=== PATIENT | female | born 1930 | race Caucasian/White ===

== ENCOUNTER 2017-04-04 09:10 | Inpatient (IN) | payer MEDICARE ==
[~2017-04-04] VITALS: Ht 166.4 cm; Wt 61.9 kg
[~2017-04-04 09:10] MED LIST: ARICEPT10 MG PO; ATIVAN0.5 MG PO; BAYER CHEWABLE81 MG PO; BUMETANIDE0.5 MG PO; GLUCOSAMINE & C1 CAP PO; LISINOPRIL10 MG PO; MULTIPLE VITAMI1 TA1 PO; NEXIUM40 MG PO; NORVASC5 MG PO; PREMARIN0.625 MG PO; REQUIP1 MG PO; VITAMIN D250000 UNIT PO; VITAMIN D5000 UNIT PO
[2017-04-04 09:49] LABS: BASOPHILS 0.2 % (0-2); EOSINOPHILS 0.5 % (0-7); HEMATOCRIT 38.1 % (36.0-48.0); HEMOGLOBIN 12.6 g/dL (12-16); IMMATURE GRANULOCYTES 0.2 % (0-5); LYMPHOCYTES 39.9 % (15-50); MCH 26.7 pg (26.0-34.0); MCHC 33.1 g/dL (31.0-37.0); MCV 80.7 fL (80.0-100.0); MEAN PLATELET VOLUME 11.2 fL (7.4-10.4); MONOCYTES 5.2 % (2-11); PLATELET COUNT 175 10x3/uL (130-400); RBC 4.72 10x6/uL (4.00-5.40); RDW 13.1 % (11.5-14.5); WBC 5.6 10x3/uL (4.8-10.8)
[2017-04-04 10:09] LABS: ALBUMIN 3.6 g/dL (3.4-5.0); ALKALINE PHOSPHATASE 74 U/L (46-116); ALT (SGPT) 29 U/L (10-68); BILIRUBIN - TOTAL 0.54 mg/dL (0.2-1.3); CALC OSMOLALITY 282 mosm/kg (275-300); CALCIUM 8.6 mg/dL (8.5-10.1); CARBON DIOXIDE 28.6 mmol/L (21.0-32.0); CHLORIDE - SERUM 101 mmol/L (98-107); CREATININE - SERUM 1.4 mg/dL (0.6-1.3); GLUCOSE 113 mg/dL (74-106); POTASSIUM - SERUM 3.2 mmol/L (3.5-5.1); SODIUM 139 mmol/L (136-145); UREA NITROGEN 23 mg/dL (7-18); eGFR NON AFRICAN AMERICAN 38 mL/min (90-120)
[2017-04-04 10:28] LABS: CKMB 1.7 U/L (0.0-3.6); CREATINE KINASE 61 UL (21-215)
[2017-04-04 10:29] LABS: TROPONIN-I < 0.017 ng/mL (0.000-0.060)
[2017-04-04 10:36] LABS: APPEARANCE CLOUDY (CLEAR); BILIRUBIN NEGATIVE (NEGATIVE); COLOR YELLOW (YELLOW); GLUCOSE NEGATIVE (NEGATIVE); KETONE NEGATIVE (NEGATIVE); NITRITE NEGATIVE (NEGATIVE); PROTEIN NEGATIVE (NEGATIVE); UROBILINOGEN NORMAL (NORMAL)
[2017-04-04 10:37] LABS: BACTERIA MANY /hpf (NONE SEEN); EPITHELIAL CELLS 0-5 /hpf (0-5); MUCUS <1+ /lpf (NONE SEEN); RED CELLS - URINE OCC /hpf (0-5)
[2017-04-04 10:38] LABS: HYALINE CAST 0-5 /lpf (NONE SEEN)
[2017-04-04] MEDS ORDERED: DIOVAN80 MG PO (21:58)
[2017-04-05 01:51] VITALS: Ht 166.4 cm; Wt 61.9 kg
[2017-04-05 04:27] VITALS: BP 132/58
[2017-04-05 06:13] LABS: BASOPHILS 0.1 % (0-2); EOSINOPHILS 0.6 % (0-7); HEMATOCRIT 41.3 % (36.0-48.0); HEMOGLOBIN 13.5 g/dL (12-16); IMMATURE GRANULOCYTES 0.1 % (0-5); LYMPHOCYTES 43.7 % (15-50); MCH 26.6 pg (26.0-34.0); MCHC 32.7 g/dL (31.0-37.0); MCV 81.5 fL (80.0-100.0); MEAN PLATELET VOLUME 11.6 fL (7.4-10.4); MONOCYTES 8.1 % (2-11); NEUTROPHILS 47.4 % (40-80); PLATELET COUNT 196 10x3/uL (130-400); RBC 5.07 10x6/uL (4.00-5.40); RDW 13.4 % (11.5-14.5)
[2017-04-05 06:24] LABS: WBC 7.2 10x3/uL (4.8-10.8)
[2017-04-05 06:34] LABS: ALBUMIN 3.7 g/dL (3.4-5.0); BILIRUBIN - TOTAL 0.4 mg/dL (0.2-1.3); CALCIUM 8.8 mg/dL (8.5-10.1); CARBON DIOXIDE 31.6 mmol/L (21.0-32.0); CREATININE - SERUM 1.3 mg/dL (0.6-1.3); POTASSIUM - SERUM 3.6 mmol/L (3.5-5.1); PROTEIN - SERUM 7.1 g/dL (6.4-8.2)
[2017-04-05 08:36] VITALS: BP 161/59
[2017-04-05 12:52] VITALS: BP 139/59
[2017-04-05] MEDS ORDERED: MACRODANTIN100 MG PO (15:04)
== END 2017-04-05 16:50 | disposition short-term general hospital (02) | DRG 689 ==
LOC: D.ER 09:10 → D.M2 20:26
PROVIDERS: Family Medicine
DX: N39.0 Urinary tract infection, site not specified (principal); G92 Toxic encephalopathy; F02.81 Dementia in other diseases classified elsewhere, unspecified severity, with behavioral disturbance; N17.9 Acute kidney failure, unspecified; B96.20 Unspecified Escherichia coli [E. coli] as the cause of diseases classified elsewhere; I10 Essential (primary) hypertension; J44.9 Chronic obstructive pulmonary disease, unspecified; I25.10 Atherosclerotic heart disease of native coronary artery without angina pectoris; K21.9 Gastro-esophageal reflux disease without esophagitis; E87.6 Hypokalemia; G30.9 Alzheimer's disease, unspecified; G25.81 Restless legs syndrome; E55.9 Vitamin D deficiency, unspecified

== ENCOUNTER 2017-04-05 16:34 | Inpatient (IN) | payer MEDICARE ==
--- NOTE | ~2017-04-05 | PN ---
PATIENT:MARIYA MAGANA MEDICAL RECORD: [id number] LOCATION:[facility] [address] ADMISSION DATE: 04/05/17 PROGRESS NOTE DATE OF SERVICE: 04/07/2017 SUBJECTIVE: The patient's case was discussed with staff. She has no new complaint. OBJECTIVE: The patient is severely impaired cognitively and has an advanced dementia. She was not aggressive today. ASSESSMENT: No change in diagnoses. PLAN: Brief supportive and educational interventions were made. Penitentiary prognosis is guarded. TRANSINT:[id number] Voice Confirmation ID: [id number] DOCUMENT ID: [id number] AMIRA WARE MD at 0912 CC: [id number] DICTATION DATE: 04/07/17 1216 ENGRAVER PICTURE: 04/07/17 1230 ADM IN [place] [id number] [place] [address]
--- NOTE | ~2017-04-05 | DS ---
PATIENT:MARIYA MAGANA :[birth year] MEDICAL RECORD: [id number] DISCHARGE SUMMARY ADMISSION DATE: 04/05/17 DISCHARGE DATE: 04/21/17 IDENTIFYING DATA: The patient is 86 years old and she is referred to us on a voluntary basis because of psychotic symptoms. She believed her son was stealing from her. She has a long established diagnosis of dementia and initially presented to the Emergency Room agitated, aggressive, and disruptive. She made very bizarre and grandiose statements along the lines of the [facility] making a museum to her honor and her family and so she needed to leave to be there for the opening of the museum. She believes she has extensive property, which certainly may well be true, but she also believed her son was trying to steal it from her for reasons that are unknown and in manner or means that are similarly unknown. HOSPITAL COURSE: The patient was admitted to the hospital and fully evaluated from both a medical, psychological, and social standpoint. She was treated with both memory enhancing and mood stabilizing medications and showed significant improvement. She subsequently was transitioned out of the hospital. DISCHARGE DIAGNOSES: AXIS I: Senile dementia of the Alzheimer's type with behavioral disturbances. AXIS II: None. AXIS III: Hypertension and chronic obstructive pulmonary disease. AXIS IV: Moderate stressors. AXIS V: Global assessment of functioning is 35. PLAN: At the time of discharge, the patient was in good behavioral control with no thoughts of harming herself or others. She was tolerating her medications well. Her long-term prognosis is guarded. Followup is to be with her primary care physician. TRANSINT:[id number] Voice Confirmation ID: [id number] DOCUMENT ID: [id number] AMIRA WARE MD at 1459 CC: [id number] DICTATION DATE: 04/27/17 1735 FOLDING RULES PRINTING MACHINE OPERATOR: 04/28/17 0832 DIS IN 04/21/17 [id number] [place] [address]
--- NOTE | ~2017-04-05 | PN ---
PATIENT:MARIYA MAGANA MEDICAL RECORD: [id number] LOCATION:[facility] [address] ADMISSION DATE: 04/05/17 PROGRESS NOTE DATE OF SERVICE: 04/19/2017 SUBJECTIVE: The patient's case was discussed with staff. She has no new complaint. OBJECTIVE: The patient denies intent to harm herself or others. She tolerates her medicines well. Eye contact is poor. ASSESSMENT: No change in diagnoses. PLAN: Current medicines and therapies have been reviewed and will be maintained. Long-term prognosis is guarded. TRANSINT:[id number] Voice Confirmation ID: [id number] DOCUMENT ID: [id number] AMIRA WARE MD at 1426 CC: [id number] DICTATION DATE: 04/19/17 1428 BORE MINER OPERATOR: 04/19/17 1455 ADM IN [id number] [place] [address]
--- NOTE | ~2017-04-05 | PN ---
PATIENT:MARIYA MAGANA MEDICAL RECORD: [id number] LOCATION:[facility] [address]112 ADMISSION DATE: 04/05/17 PROGRESS NOTE DATE OF SERVICE: 04/15/2017 SUBJECTIVE: No new complaint. OBJECTIVE: The patient continues to exhibit paranoid delusional ideation. Behaviorally, she has not presented new problems. She is taking medication as ordered. On exam, mood is slightly anxious. Affect is reserved. Speech is tangential. Content of thought is positive for delusional ideation. Sensorium unchanged. ASSESSMENT: No change in diagnoses. PLAN: 1. Continue current treatment plan. 2. Continue supportive therapy. TRANSINT:[id number] Voice Confirmation ID: [id number] DOCUMENT ID: [id number] HERI RODRIGUEZ III, MD at 1733 CC: [id number] DICTATION DATE: 04/15/17 1429 EDUCATIONAL ASSISTANT TEACHER: 04/15/17 1513 ADM IN [facility] [address] [place] [address]
--- NOTE | ~2017-04-05 | PN ---
PATIENT:MARIYA MAGANA MEDICAL RECORD: [id number] LOCATION:[facility] [address] ADMISSION DATE: 04/05/17 PROGRESS NOTE DATE OF SERVICE: 04/14/2017 SUBJECTIVE: The patient's case was discussed with staff. She has no new complaint. OBJECTIVE: The patient denies intent to harm herself or others. She is tolerating her medicines well. Eye contact is fair. She has been a little irritable, but nothing that would rise to the level of unmanageable. I am going to maintain her current medicines and would anticipate that she could reasonably be transitioned out of the hospital after the weekend if this level of improvement is maintained. TRANSINT:[id number] Voice Confirmation ID: [id number] DOCUMENT ID: [id number] AMIRA WARE MD at 1344 CC: [id number] DICTATION DATE: 04/14/17 1227 SALON MANAGER: 04/14/17 1234 ADM IN [id number] [place] [address]
--- NOTE | ~2017-04-05 | PN ---
PATIENT:MARIYA MAGANA MEDICAL RECORD: [id number] LOCATION:[facility] [address] ADMISSION DATE: 04/05/17 PROGRESS NOTE DATE OF SERVICE: 04/12/2017 SUBJECTIVE: The patient's case was discussed with staff. She has no new complaint. OBJECTIVE: The patient is somewhat withdrawn, but interacts some. She is eating and sleeping well. She is also taking her medications. ASSESSMENT: No change in diagnoses. PLAN: The patient is severely impaired cognitively. She will be monitored for clinical changes associated with her current medication regimen, which I have reviewed and will maintain for today. TRANSINT:[id number] Voice Confirmation ID: [id number] DOCUMENT ID: [id number] AMIRA WARE MD at 2008 CC: [id number] DICTATION DATE: 04/12/17 1522 THEORETICAL PHYSICIST: 04/12/17 1527 ADM IN [place] [id number] [place] [id number]
--- NOTE | ~2017-04-05 | PN ---
PATIENT:MARIYA MAGANA MEDICAL RECORD: [id number] LOCATION:[facility] [address] ADMISSION DATE: 04/05/17 PROGRESS NOTE DATE OF SERVICE: 04/21/2017 SUBJECTIVE: The patient's case was discussed with staff. She has no new complaint. OBJECTIVE: The patient is in good behavioral control with limited insight about her condition. She tolerates her medicines well. ASSESSMENT: No change in diagnoses. PLAN: The patient will be discharged from the hospital today. Followup will be with her primary care alf physician. She does not represent an acute danger to the patients at the alf. TRANSINT:[id number] Voice Confirmation ID: [id number] DOCUMENT ID: [id number] AMIRA WARE MD at 1331 CC: [id number] DICTATION DATE: 04/21/17 1348 FINANCIAL SERVICES CONSULTANT: 04/21/17 1444 DIS IN 04/21/17 [place] [id number] [place] [address]
--- NOTE | ~2017-04-05 | PN ---
PATIENT:MARIYA MAGANA MEDICAL RECORD: [id number] LOCATION:[facility] [address] ADMISSION DATE: 04/05/17 PROGRESS NOTE DATE OF SERVICE: 04/09/2017 SUBJECTIVE: The patient's case was discussed with staff. She has no new complaint. OBJECTIVE: The patient denies intent to harm herself or others. She generally tolerates her medicines well. ASSESSMENT: No change in diagnoses. PLAN: Supportive and educational interventions were made. Custodial prognosis is guarded. TRANSINT:[id number] Voice Confirmation ID: [id number] DOCUMENT ID: [id number] AMIRA WARE MD at 1430 CC: [id number] DICTATION DATE: 04/09/17 1145 BELLY DUMP DRIVER: 04/09/17 1220 ADM IN [place] [id number]
--- NOTE | ~2017-04-05 | PN ---
PATIENT:MARIYA MAGANA MEDICAL RECORD: [id number] LOCATION:[facility] [address] ADMISSION DATE: 04/05/17 PROGRESS NOTE DATE OF SERVICE: 04/18/2017 SUBJECTIVE: The patient's case was discussed with staff. She has no new complaint. OBJECTIVE: The patient is eating and sleeping well. Her grandiose and paranoid delusions are better and she seems to be tolerating her medicines well. ASSESSMENT: No change in diagnoses. PLAN: The patient has shown significant improvement. I anticipate she can be transitioned out of the hospital soon if this level of improvement is maintained. TRANSINT:[id number] Voice Confirmation ID: [id number] DOCUMENT ID: [id number] AMIRA WARE MD at 1418 CC: [id number] DICTATION DATE: 04/18/171836 OUTSIDE FOOD SERVER: 04/18/17 1854 ADM IN [facility] [address] [place] [id number]
--- NOTE | ~2017-04-05 | PN ---
PATIENT:MARIYA MAGANA MEDICAL RECORD: [id number] LOCATION:[facility] [address] ADMISSION DATE: 04/05/17 PROGRESS NOTE DATE OF SERVICE: 04/16/2017 SUBJECTIVE: No new complaint. OBJECTIVE: Patient's course discussed with staff. She has been stable in the last 24 hours. No alteration in medication required. On exam, mood is euthymic. Affect constricted. Speech is terse. Content of thought is unchanged. Sensorium unchanged. ASSESSMENT: No change in diagnosis. PLAN: 1. Continue current medications. 2. Continue supportive therapy. TRANSINT:[id number] Voice Confirmation ID: [id number] DOCUMENT ID: [id number] HERI RODRIGUEZ III, MD at 1124 CC: [id number] DICTATION DATE: 04/16/17 1148 YOKE PRESSER: 04/16/17 1202 ADM IN [place] [id number] [place] [id number]
--- NOTE | ~2017-04-05 | PSY ---
PATIENT NAME:MARIYA MAGANA MEDICAL RECORD: [id number] : [birth year] LOCATION:ABBY [address]123 ADMISSION DATE: 04/05/17 ACCOUNT: [id number] PSYCHIATRIC EVALUATION DATE OF EVALUATION: 04/06/17 IDENTIFYING DATA: The patient is an 86-year-old and she is referred to the hospital on a voluntary basis because of psychotic symptoms. CHIEF COMPLAINT: "My son, Kevin, is stealing from me." HISTORY OF PRESENT ILLNESS: The patient is an 86-year-old woman with an established diagnosis of dementia. She initially presented to the Emergency Room very agitated, aggressive, and disruptive. She was making grandiose statements about the state of [place] making a museum to honor her and her family. She needed to leave, so that she could go to [place] to help them with the plans for the museum that they are going to start to honor her family. She insists her son is stealing her property, but she does not have any specifics about what property or how he has done that or what he might have done, just it is a big conspiracy that lots of people are involved in. The tone is certainly delusional, although obviously children steal from their parents, this is just one of a number of factors that are very bizarre and is beyond the scope of this hospitalization to investigate this, but appropriate individuals will be notified. The patient is only oriented to person. She did have a urinary tract infection and was admitted to the medical floor overnight to start her on antibiotics. PAST MEDICAL HISTORY: Significant for COPD, hypertension, and coronary artery disease. PAST PSYCHIATRIC HISTORY: Significant for an established diagnosis of dementia, although I do not know when that diagnosis was established or by whom. FAMILY HISTORY: Unknown. ALLERGIES: PENICILLIN, CODEINE, AND SULFA. CURRENT MEDICATIONS: Include Aricept, lisinopril, and Macrodantin. SOCIAL HISTORY: The patient has been and or 3 times. She does have one son who is adopted. She has never been a significant drinker. She did smoke, but quit doing some decades ago. MENTAL STATUS EXAMINATION: The patient is awake, alert, and oriented to person only. Her mood is flat. Her affect is constricted. Thought processes are disorganized. Memory, concentration, and abstraction abilities are impaired. She denies intent to harm herself or others. She denies psychotic symptoms. ASSETS: Supportive family members. LIABILITIES: Limited insight. DIAGNOSTIC IMPRESSION: AXIS I: Senile dementia of the Alzheimer's type with behavioral disturbances. AXIS II: None. AXIS III: Hypertension, chronic obstructive pulmonary disease. AXIS IV: Moderate stressors. AXIS V: Global assessment of functioning is 30. PLAN: At this time, the patient is admitted to the hospital secondary to psychotic symptoms and agitation associated with a dementing illness. She will be comprehensively evaluated from both the medical, psychological, and social standpoint. She will be treated with both mood stabilizing and memory enhancing medications. TRANSINT:[id number] Voice Confirmation ID: [id number] DOCUMENT ID: [id number] AMIRA WARE MD at 1206 CC: [id number] DICTATION DATE: 04/06/17 1210 INDUSTRIAL SPECIALIST: 04/06/17 1245 [facility] IN [place] [address] [place] [id number]
--- NOTE | ~2017-04-05 | PN ---
PATIENT:MARIYA MAGANA MEDICAL RECORD: [id number] LOCATION:[facility] [address] ADMISSION DATE: 04/05/17 PROGRESS NOTE DATE OF SERVICE: 04/20/2017 SUBJECTIVE: The patient's case was discussed with staff. She has no new complaint. OBJECTIVE: The patient denies intent to harm herself or others. She generally tolerates her medicines well. ASSESSMENT: No change in diagnoses. PLAN: Brief supportive and educational interventions were made. Long-term prognosis is guarded. I anticipate the patient can be transitioned out of the hospital tomorrow morning. TRANSINT:[id number] Voice Confirmation ID: [id number] DOCUMENT ID: [id number] AMIRA WARE MD at 1337 CC: [id number] DICTATION DATE: 04/20/17 1457 ICE DELIVERY DRIVER: 04/20/17 1602 ADM IN [facility] [address] [place] [address]
--- NOTE | ~2017-04-05 | PN ---
PATIENT:MARIYA MAGANA MEDICAL RECORD: [id number] LOCATION:[facility] [address] ADMISSION DATE: 04/05/17 PROGRESS NOTE DATE OF SERVICE: 04/08/2017 SUBJECTIVE: The patient's case was discussed with staff. She has no new complaint. OBJECTIVE: The patient is in good behavioral control, but severely impaired cognitively. She was tested by Dr. Heidi Coles and found to be in the severe range. There is no question that she has an advanced dementia. She clearly is unable to make reasonable informed consent decisions about her person or state. She is in need of 66-eykf-c-day supervision. TRANSINT:[id number] Voice Confirmation ID: [id number] DOCUMENT ID: [id number] AMIRA WARE MD at 1139 CC: [id number] DICTATION DATE: 04/08/17 1319 TOWING PILOT: 04/08/17 1937 ADM IN [facility] [address] [place] [id number]
--- NOTE | ~2017-04-05 | PN ---
PATIENT:MARIYA MAGANA MEDICAL RECORD: [id number] LOCATION:[facility] [address] ADMISSION DATE: 04/05/17 PROGRESS NOTE DATE OF SERVICE: 04/11/2017 SUBJECTIVE: The patient's case was discussed with staff. She has no new complaint. OBJECTIVE: The patient is in good behavioral control with limited insight about her condition. She tolerates her medicines well. ASSESSMENT: No change in diagnoses. PLAN: Brief supportive and educational interventions were made. Senior Care prognosis is guarded. She is severely impaired, but has not been aggressive today. She certainly needs 39-zuiz-m-day supervision. TRANSINT:[id number] Voice Confirmation ID: [id number] DOCUMENT ID: [id number] AMIRA WARE MD at 1430 CC: [id number] DICTATION DATE: 04/11/17 1357 RACKMAN: 04/11/17 1548 ADM IN [facility] [address] [place] [address]
[~2017-04-05 16:34] MED LIST changes: +DIOVAN80 MG PO; +MACRODANTIN100 MG PO
[2017-04-06 06:34] LABS: CHOL - HDL RATIO 3.5 ratio (2.3-4.1); LDL-HDL RATIO 2.1 ratio (1.5-3.5); THYROID STIMULATING HORMONE 1.26 uIU/mL (0.36-3.74)
[2017-04-06 09:52] VITALS: BP 151/65
[2017-04-06 12:21] LABS: BASOPHILS 0.2 % (0-2); EOSINOPHILS 1.4 % (0-7); HEMATOCRIT 39.5 % (36.0-48.0); HEMOGLOBIN 13.1 g/dL (12-16); MCH 26.8 pg (26.0-34.0); MCHC 33.2 g/dL (31.0-37.0); MCV 80.8 fL (80.0-100.0); MEAN PLATELET VOLUME 11.8 fL (7.4-10.4); MONOCYTES 8.4 % (2-11); PLATELET COUNT 194 10x3/uL (130-400); RBC 4.89 10x6/uL (4.00-5.40); RDW 13.5 % (11.5-14.5)
[2017-04-06 12:28] LABS: WBC 4.9 10x3/uL (4.8-10.8)
[2017-04-06 20:09] VITALS: BP 196/97
[2017-04-07 07:24] LABS: RAPID PLASMA REAGIN Non Reactive (Non Reactive)
[2017-04-07 08:21] LABS: FOLATE (FOLIC ACID) - SERUM >20.0 ng/mL (>3.0); VITAMIN D 25 HYDROXY 26.9 ng/mL (30.0-100.0)
[2017-04-07 09:51] VITALS: BP 154/70
[2017-04-07 23:34] VITALS: BP 142/60
[2017-04-08 09:56] VITALS: BP 146/80
[2017-04-08 20:08] VITALS: BP 130/64
[2017-04-09 07:38] VITALS: BP 147/77
[2017-04-09 10:27] VITALS: BP 149/77
[2017-04-09 19:57] VITALS: BP 180/80
[2017-04-10 07:34] VITALS: BP 131/61
[2017-04-10 23:56] VITALS: BP 134/63
[2017-04-11 08:00] VITALS: BP 158/70
[2017-04-11 19:16] VITALS: BP 134/67
[2017-04-12 07:00] VITALS: BP 144/70
[2017-04-12 19:52] VITALS: BP 138/57; BP 156/60
[2017-04-13 10:24] VITALS: BP 138/61
[2017-04-13 11:45] VITALS: BMI 22.8
[2017-04-13 19:54] VITALS: BP 150/78
[2017-04-14 07:41] VITALS: BP 153/71
[2017-04-14 19:56] VITALS: BP 147/73
[2017-04-15 09:28] VITALS: BP 157/73
[2017-04-15 20:10] VITALS: BP 135/58
[2017-04-16 07:00] VITALS: BP 131/61
[2017-04-16 19:57] VITALS: BP 127/65
[2017-04-17 07:52] VITALS: BP 153/70
[2017-04-17 19:53] VITALS: BP 117/48
[2017-04-18 07:00] VITALS: BP 138/68
[2017-04-19 07:00] VITALS: BP 154/70
[2017-04-19 20:08] VITALS: BP 140/68
[2017-04-20 10:47] VITALS: BP 160/70
[2017-04-20] MEDS ORDERED: ARICEPT5 MG PO (14:40)
[2017-04-20] MEDS ORDERED: LEXAPRO10 MG PO (14:41)
[2017-04-20] MEDS ORDERED: NORVASC10 MG PO (14:41)
[2017-04-20] MEDS ORDERED: Bactroban ointment TOPICAL (14:42)
[2017-04-20 20:06] VITALS: BP 144/060
[2017-04-21 09:31] VITALS: BP 108/76
== END 2017-04-21 11:00 | disposition home or self-care (01) | DRG 57 ==
LOC: D.PSYCH 16:34 → D.M2 17:13 → D.PSYCH 17:13
PROVIDERS: Psychiatry & Neurology Psychiatry
DX: G30.1 Alzheimer's disease with late onset (principal); F02.81 Dementia in other diseases classified elsewhere, unspecified severity, with behavioral disturbance; N39.0 Urinary tract infection, site not specified; K21.9 Gastro-esophageal reflux disease without esophagitis; J44.9 Chronic obstructive pulmonary disease, unspecified; I10 Essential (primary) hypertension; I25.10 Atherosclerotic heart disease of native coronary artery without angina pectoris; Z87.891 Personal history of nicotine dependence; E55.9 Vitamin D deficiency, unspecified; G25.81 Restless legs syndrome; B96.1 Klebsiella pneumoniae [K. pneumoniae] as the cause of diseases classified elsewhere

== ENCOUNTER 2018-06-27 16:45 | Inpatient (IN) | payer MEDICARE ==
[~2018-06-27] VITALS: Ht 165.1 cm; Wt 69.1 kg
[~2018-06-27 16:45] MED LIST changes: +ARICEPT5 MG PO; +Bactroban ointment TOPICAL; +LEXAPRO10 MG PO; +NORVASC10 MG PO
[2018-06-27 19:38] VITALS: BP 179/67
[2018-06-27 19:47] LABS: APPEARANCE HAZY (CLEAR); BILIRUBIN NEGATIVE (NEGATIVE); COLOR YELLOW (YELLOW); GLUCOSE NEGATIVE (NEGATIVE); KETONE NEGATIVE (NEGATIVE); NITRITE POSITIVE (NEGATIVE); PROTEIN NEGATIVE (NEGATIVE); UROBILINOGEN NORMAL (NORMAL)
[2018-06-27 19:48] LABS: BACTERIA MANY /hpf (NONE SEEN); EPITHELIAL CELLS 0-5 /hpf (0-5); RED CELLS - URINE 0-5 /hpf (0-5)
[2018-06-27 22:43] VITALS: BP 136/69; BMI 23.3
[2018-06-28 07:22] LABS: BASOPHILS 0.6 % (0-2); EOSINOPHILS 2.4 % (0-7); HEMATOCRIT 37.3 % (36.0-48.0); HEMOGLOBIN 12.2 g/dL (12-16); IMMATURE GRANULOCYTES 0.2 % (0-5); LYMPHOCYTES 31.6 % (15-50); MCH 26.9 pg (26.0-34.0); MCHC 32.7 g/dL (31.0-37.0); MCV 82.2 fL (80.0-100.0); MEAN PLATELET VOLUME 10.4 fL (7.4-10.4); MONOCYTES 9.1 % (2-11); NEUTROPHILS 56.1 % (40-80); PLATELET COUNT 202 10x3/uL (130-400); RBC 4.54 10x6/uL (4.00-5.40); RDW 14.3 % (11.5-14.5); WBC 4.9 10x3/uL (4.8-10.8)
[2018-06-28 07:35] LABS: ALBUMIN 3.1 g/dL (3.4-5.0); ANION GAP 9.9 mmol/L (8-16); BILIRUBIN - TOTAL 0.53 mg/dL (0.2-1.3); CALCIUM 8.4 mg/dL (8.5-10.1); CARBON DIOXIDE 27.9 mmol/L (21.0-32.0); CHOL - HDL RATIO 3.2 ratio (2.3-4.1); CREATININE - SERUM 0.9 mg/dL (0.6-1.3); POTASSIUM - SERUM 3.8 mmol/L (3.5-5.1); PROTEIN - SERUM 6.4 g/dL (6.4-8.2); THYROID STIMULATING HORMONE 1.85 uIU/mL (0.36-3.74)
[2018-06-28 08:00] VITALS: BP 115/66
--- NOTE | 2018-06-28 10:00 | NUR ---
RECEIVED PATIENT IN DINING ROOM FOR B'FAST, ALERT, CALM, COOPERATIVE. COOPERATIVE WITH GROUP, ENJOYS DANCING WITH OTHER PATIENTS. CONT POC OF CARE DIRECTED.
[2018-06-28 10:45] VITALS: BMI 23.2
[2018-06-28 14:45] VITALS: BMI 23.3
[2018-06-28 22:21] VITALS: BP 170/68
--- NOTE | 2018-06-29 02:00 | NUR ---
RECEIVED IN DAYROOM. WATCHING TV. CALM AND COOPERATIVE WITH CARE AND ASSESSMENT. VERY CONFUSED. WANDERING AROUND. REDIRECT AND REORIENT NEEDED. RESTING IN BED WITH EYES CLOSED AT THIS TIME. CONTINUE PLAN OF CARE.
[2018-06-29 06:14] LABS: VITAMIN D 25 HYDROXY 7.7 ng/mL (30.0-100.0)
[2018-06-29 07:21] LABS: RAPID PLASMA REAGIN Non Reactive (Non Reactive)
--- NOTE | 2018-06-29 08:10 | NUR ---
REC'D PT SITTING IN CHAIR BY NURSES STATION. RESP EVEN AND NONLABORED. NO ACUTE DISTRESS NOTED. CONFUSION NOTED REDIRECT AND REORIENT NEEDED. WILL CONT TO MONITOR Q 15 MINS FOR SAFETY.
[2018-06-29 10:03] VITALS: BP 141/60
[2018-06-29 12:13] LABS: FOLATE (FOLIC ACID) - SERUM >20.0 ng/mL (>3.0)
--- NOTE | 2018-06-29 14:46 | PSY ---
PATIENT NAME:MARIYA MAGANA MEDICAL RECORD: [id number] : [birth year] LOCATION:ABBY Felder ADMISSION DATE: 06/27/18 ACCOUNT: [id number] PSYCHIATRIC EVALUATION DATE OF EVALUATION: 06/28/18 IDENTIFYING DATA: The patient is 87 years old and she is admitted to the hospital on a voluntary basis. CHIEF COMPLAINT: Confusion and agitation. HISTORY OF PRESENT ILLNESS: The patient is living in a memory care unit of an assisted living center, but they cannot manage her. She is wandering. She is confused. She becomes agitated. They have sent her to us to be evaluated to see if there is anything we could do to help with these problems. PAST MEDICAL HISTORY: Significant for coronary artery disease, hypertension and COPD. PAST PSYCHIATRIC HISTORY: Significant for a long established diagnosis of dementia and the patient has been hospitalized here in the past because of her agitated behavior. FAMILY HISTORY: Significant for hypertension. ALLERGIES: SULFA, CODEINE AND PENICILLIN. CURRENT MEDICATIONS: Include Aricept, Norvasc, Lexapro, and Diovan. SOCIAL HISTORY: The patient is . She had one son who was adopted, he has subsequently . When she was previously here, she felt that he was trying to take advantage of her or steal from her. Now, she says that she thinks that the man's is trying to do the same thing even though there is no evidence of this. She is a little grandiose, telling me that her family is a wealthy oil family from [place] and that a number of movies have recently been made about her family. This is certainly possible, but it just sounds delusional. MENTAL STATUS EXAMINATION: The patient is awake, alert and oriented to person only. Her mood is flat. Her affect is constricted. Thought processes are circumstantial. Memory, concentration, and abstraction abilities are at least moderately impaired and she denies any active intent to harm herself or others as well as overt psychotic symptoms. ASSETS: Supportive family members. LIABILITIES: Limited insight. DIAGNOSTIC IMPRESSION: AXIS I: Senile dementia of the Alzheimer's type with behavioral disturbances. AXIS II: None. AXIS III: Hypertension, chronic obstructive pulmonary disease. AXIS IV: Moderate. AXIS V: Global assessment of functioning is 30. PLAN: At this time, the patient will be admitted to the hospital for comprehensive medical, psychological, and social evaluation. She will be treated with both mood stabilizing and memory enhancing medications. Her long-term prognosis is guarded. TRANSINT:[id number] Voice Confirmation ID: [id number] DOCUMENT ID: [id number] AMIRA WARE MD at 1446 CC: [id number] DICTATION DATE: 06/28/18 170 BRUSH CLEARER SURVEYING: 06/28/18 1723 ADM IN [place] [address] [place] [address]
--- NOTE | 2018-06-29 18:17 | NUR ---
PT SITTING IN DAY AREA SOCIALZING WITH PEERS. RESP EVEN AND NONLABORED. NO ACUTE DISTRESS NOTED. PT MED COMPLIANT. AAOX1. REDIRECT AND REORIENT NEEDED. CONFUSION NOTED. WANDERING AT TIMES. WILL CONT TO MONITOR Q 15 MINS FOR SAFETY.
--- NOTE | 2018-06-29 19:57 | NUR ---
RECEIVED IN DAYROOM. WANDERING AROUND. BELEIVES SHE IS GOING HOME TONIGHT. STATES SHE IS GOING TO STAY UP UNTIL HER RIDE GETS HERE TO TAKE HER HOME. CALM AND COOPERATIVE WITH CARE AND ASSESSMENT. REDIRECT AND REORIENT NEEDED. CONTINUES TO WANDER AROUND AT THIS TIME. CONTINUE PLAN OF CARE.
[2018-06-29 20:11] VITALS: BP 145/70
--- NOTE | 2018-06-30 07:51 | NUR ---
REC'D PT IN HER ROOM MAKING HER BED. NO ACUTE DISTRESS NOTED. PT IS PLESANT THIS AM. RESP EVEN AND NONLABORED. CONFUSION NOTED. PT TENDS TO WANDER AT TIMES. STATED "I CANT FIND ANYTHING. I KNOW I DROVE UP HERE IN MY CAR" REDIRECT AND REORIENT NEEDED. WILL CONT PLAN OF CARE. WILL CONT TO MONITOR Q 15 MINS FOR SAFETY.
[2018-06-30 09:37] VITALS: BP 160/61
--- NOTE | 2018-06-30 11:55 | NUR ---
Jose [facility] Well Logging Captain for [facility] explained to Marjorie Hanna and I that the patient's grand daughter will be presenting legal ghuardianship papers indicating that Swathi Maldonado, the patient's gjoktlis-fz-szu has full legal guardianship over the patient and that when presented with the papers we are to speak to Swathi Maldonado to receive a new code word that she will set up.
--- NOTE | 2018-06-30 12:05 | NUR ---
[facility] called and stated that the patient's grand daughter will be bringing legal papers to show guardianship. Explained to them that "Yes, ma'am our Spanish Instructor Jose Nelson has explained the situation to us and we are expecting the paperwork."
--- NOTE | 2018-06-30 12:27 | NUR ---
The patients grand daughter brought the sameeraInPact.mehyacinth paperwork stating that the patient's daughter in law has guardianship. We also have a copy of the patient's son's cerificate. The legal forms specifically indicate that the guardian is Swathi Maldonado, the patient's daughter in law after the of her son Kevin Maldonado. Apprently in the past the patient's friend was able to check her out of a facility without the families knowledge. This nurse spoke to Swathi Maldonado DINESH and did receive a new code word. The code word is now Jacqueline Phillips. Ms. Maldonado she would like time to think about giving the code word to anyone at this time. She says she will call me by tomorrow morning as I explained that I will be here tomorrow.
--- NOTE | 2018-06-30 15:55 | PN ---
PATIENT:MARIYA MAGANA MEDICAL RECORD: [id number] LOCATION:ABBY [address] ADMISSION DATE: 06/27/18 PROGRESS NOTE DATE OF SERVICE: 06/29/2018 SUBJECTIVE: The patient's case was discussed with staff. She has no new complaint. OBJECTIVE: The patient has had no significant evidence of aggression. She at times is quite difficult to redirect, but overall she has not been seriously problematic in that way. She has no thoughts of wanting to harm herself or others. She is irritable in a way that I think is consistent with a depressive equivalent. ASSESSMENT: Senile dementia of the Alzheimer's type with behavioral disturbances. PLAN: Based on the patient's current behavior, I am going to increase her dose of Lexapro to 10 mg daily. Her long-term prognosis is guarded. Both supportive and educational interventions were made. Long-term prognosis is guarded. TRANSINT:[id number] Voice Confirmation ID: [id number] DOCUMENT ID: [id number] AMIRA WARE MD at 1555 CC: [id number] DICTATION DATE: 06/29/18 1558 AUSTRALIAN RULES FOOTBALLER: 06/29/18 1651 ADM IN [facility] [address] [place] [address]
[2018-06-30 19:47] VITALS: BP 136/61
--- NOTE | 2018-06-30 21:37 | NUR ---
PATIENT IS COOPERATIVE, COMMUNICATING WELL WITH OTHERS, COMPLIANT WITH MEDS, WILL FOLLOW POC
[2018-07-01 08:03] VITALS: BP 139/62
--- NOTE | 2018-07-01 09:28 | NUR ---
RECEIVED PATIENT IN DINING ROOM FOR B'FAST, ALERT, CALM, COOPERATIVE, CONFUSED. MEDS ADMIN PER ORDERS WITH COMPLETE MED COMPLIANCE NOTED COOPERATIVE WITH GROUP AND STAFF REQUESTS. CONT POC INCLUDING MEDS AND THERAPY DIRECTED.
--- NOTE | 2018-07-01 11:38 | PN ---
PATIENT:MARIYA MAGANA MEDICAL RECORD: [id number] LOCATION:ABBY [address] ADMISSION DATE: 06/27/18 PROGRESS NOTE DATE OF SERVICE: 06/30/2018 SUBJECTIVE: The patient's case was discussed with staff. She has no new complaint. OBJECTIVE: The patient denies intent to harm herself or others. She generally tolerates her medicines well. Eye contact is fair. ASSESSMENT: Senile dementia of the Alzheimer's type with behavioral disturbances. PLAN: Current medicines and therapies have been reviewed, both will be maintained. TRANSINT:[id number] Voice Confirmation ID: [id number] DOCUMENT ID: [id number] AMIRA WRAE MD at 1138 CC: [id number] DICTATION DATE: 06/30/18 1645 MONEY MARKET DEALER: 06/30/18 2158 ADM IN [facility] [address] [place] [address]
--- NOTE | 2018-07-01 19:52 | NUR ---
PATIENT HAS A HARD TIME REMEMBERING THINGS AT TIMES, NO WANDERING NOTED. COMPLIANT WITH MEDS, WILL FOLLOW POC
[2018-07-01 20:07] VITALS: BP 133/61
[2018-07-02 07:00] VITALS: BP 131/65
--- NOTE | 2018-07-02 09:28 | NUR ---
RECEIVED PATIENT IN DINING ROOM FOR B'FAST, ALERT, CALM, CONFUSED, APPETITE FAIR. MEDS ADMIN PER ORDERS WITH COMPLETE MED COMPLIANCE NOTED. COOPERATIVE WITH GROUP ACTIVITIES AND STAFF REQUESTS. CONT POC INCLUDING MEDS AND GROUP THERAPY DIRECTED.
--- NOTE | 2018-07-02 10:17 | PN ---
PATIENT:MARIYA MAGANA MEDICAL RECORD: [id number] LOCATION:[facility] ADMISSION DATE: 06/27/18 PROGRESS NOTE DATE OF SERVICE: 07/01/2018 SUBJECTIVE: The patient's case was discussed with staff. She has no new complaint. OBJECTIVE: The patient is in good behavioral control with limited insight about her condition. She tolerates her medicines well. ASSESSMENT: No change in diagnoses. PLAN: Supportive and educational interventions were made. Long-term prognosis is guarded. TRANSINT:[id number] Voice Confirmation ID: [id number] DOCUMENT ID: [id number] AMIRA WARE MD at 1017 CC: [id number] DICTATION DATE: 07/01/18 1157 VICE PRESIDENT RESIDENTIAL SOLAR SALES: 07/01/18 1235 ADM IN [address] [address]
[2018-07-02 23:07] VITALS: BP 105/49
[2018-07-03 07:00] VITALS: BP 129/63
--- NOTE | 2018-07-03 10:00 | NUR ---
PATIENT ALERT AND SOCIALIZING WITH PEERS. CALM AND COOPERATIVE WITH CARE AND ASSESSMENT. MEDICATION COMPLIANT. SOME CONFUSION NOTED. REORIENT AND REDIRECT NEEDED. WILL CONTINUE POC.
--- NOTE | 2018-07-03 13:45 | PN ---
PATIENT:MARIYA MAGANA MEDICAL RECORD: [id number] LOCATION:[facility] ADMISSION DATE: 06/27/18 PROGRESS NOTE DATE OF SERVICE: 07/02/2018 SUBJECTIVE: The patient's case was discussed with staff. She has no new complaint. OBJECTIVE: The patient is disorganized and has some delusions. She is not eating very well. ASSESSMENT: Senile dementia of the Alzheimer's type with behavioral disturbances. PLAN: The patient is taking Megace for appetite stimulation. She is also receiving Lexapro for its antidepressant effect. She will be monitored on current medications. Her long-term prognosis is guarded. TRANSINT:[id number] Voice Confirmation ID: [id number] DOCUMENT ID: [id number] AMIRA WARE MD at 1345 CC: [id number] DICTATION DATE: 07/02/18 1035 EXTRACTIVE METALLURGIST: 07/02/18 1402 ADM IN [id number] [place] [address]
[2018-07-03 20:07] VITALS: BP 132/62
--- NOTE | 2018-07-03 23:02 | NUR ---
RECEIVED IN PATIENT ROOM. GETTING READY FOR BED. CALM AND COOPERATIVE WITH CARE AND ASSESSMENT. NO WANDERING AROUND OR EXIT SEEKING THIS EVENING. REDIRECT AND REORIENT NEEDED. RESTING IN BED WITH EYES CLOSED AT THIS TIME. CONTINUE PLAN OF CARE.
[2018-07-04 08:00] VITALS: BP 133/62
--- NOTE | 2018-07-04 11:00 | NUR ---
PATIENT IS AWAKE AND ALERT WITH SOME CONFUSION NOTED. SHE IS VERY HELPFUL AND SOCILIZES WITH PEERS. CALM AND COOPERATIVE WITH CARE AND ASSESSMENT. SHE IS MEDICATION COMPLIANT. REDIRECT AND REORIENT NEEDED. WILL CONTINUE POC.
[2018-07-04 12:20] VITALS: Ht 165.1 cm; Wt 69.1 kg
--- NOTE | 2018-07-04 15:50 | PN ---
PATIENT:MARIYA MAGANA MEDICAL RECORD: [id number] LOCATION:[facility] ADMISSION DATE: 06/27/18 PROGRESS NOTE DATE OF SERVICE: 07/03/2018 SUBJECTIVE: The patient's case was discussed with staff. She has no new complaint. OBJECTIVE: The patient is in good behavioral control. She has limited insight about her condition. She is tolerating her medicines well. ASSESSMENT: Senile dementia of the Alzheimer's type with behavioral disturbances. PLAN: The patient is going to return to [facility] [place] soon, especially if this level of improvement is maintained. I am going to recommend she go to the memory care unit since they will be more support and structure there. TRANSINT:[id number] Voice Confirmation ID: [id number] DOCUMENT ID: [id number] AMIRA WARE MD at 1550 CC: [id number] DICTATION DATE: 07/03/18 1547 DELIVERY DRIVER/SUPERVISOR: 07/03/18 1751 ADM IN [facility] [address] [id number]
--- NOTE | 2018-07-04 20:30 | NUR ---
B) The patient is pleasant, she did tell me "I have torn this room apart looking for my purse." The patient said someone told her that they locked her purse up and she said that made her feel better. She also said "I wanted to Tan and give him all of my millions of dollars worth of property, it would beat giving it to my family, they don't know how to do things." I) Provide prescribed meds, redirect as needed. R) The patient is compliant with meds. She has not been negative this pm, she has not hallucinated this pm. P) Continue POC.
[2018-07-04 20:43] VITALS: BP 131/56
[2018-07-05 08:25] VITALS: BP 133/76
--- NOTE | 2018-07-05 10:00 | NUR ---
PATIENT IS AWAKE AND ALERT, BUT CONFUSION NOTED. CALM AND COOPERATIVE WITH CARE AND ASSESSMENT. MEDICATION COMPLIANT. WILL CONTINUE POC.
--- NOTE | 2018-07-05 14:03 | PN ---
PATIENT:MARIYA MAGANA MEDICAL RECORD: [id number] LOCATION:[facility] ADMISSION DATE: 06/27/18 PROGRESS NOTE DATE OF SERVICE: 07/04/2018 SUBJECTIVE: The patient's case was discussed with staff. She has no new complaint. OBJECTIVE: The patient denies intent to harm herself or others. She generally tolerates her medicines well. She is eating and sleeping reasonably well. She is severely impaired cognitively. She denies being depressed, but then will endorse numerous neurovegetative depressive symptoms individually. ASSESSMENT: Senile dementia of the Alzheimer's type with behavioral disturbances. PLAN: The patient is going to be started on Aricept at a dose of 5 mg at bedtime. Aricept is being used to address her underlying cognitive impairment. She will be monitored for clinical changes associated with its use. TRANSINT:[id number] Voice Confirmation ID: [id number] DOCUMENT ID: [id number] AMIRA WARE MD at 1403 CC: [id number] DICTATION DATE: 07/04/18 1509 DIVISION TOLL WIRE CHIEF: 07/04/18 1806 ADM IN [address] [id number] [place] [address]
[2018-07-05 20:00] VITALS: BP 133/47
--- NOTE | 2018-07-05 21:00 | NUR ---
RECEIVED IN PATIENT ROOM. GETTING READY FOR BED. CALM AND COOPERATIVE WITH CARE AND ASSESSMET. CONFUSED. NO WANDERING THIS EVENING. REDIRECT AND REORIENT NEEDED. RESTING IN BED WITH EYES CLOSED AT THIS TIME. CONTINUE PLAN OF CARE.
--- NOTE | 2018-07-06 09:37 | NUR ---
RECEIVED PATIENT IN DINING ROOM FOR B'FAST, ALERT, CALM, COOPERATIVE, CONFUSED. MEDS ADMIN PER ORDERS WITH COMPLETE MED COMPLIANCE NOTED. COOPERATIVE WITH GROUP AND STAFF REQUESTS. CONT POC INCLUDING MEDS AND GROUP THERAPY DIRECTED.
[2018-07-06 12:51] VITALS: BP 130/57
--- NOTE | 2018-07-06 14:19 | PN ---
PATIENT:MARIYA MAGANA MEDICAL RECORD: [id number] LOCATION:[facility] ADMISSION DATE: 06/27/18 PROGRESS NOTE DATE OF SERVICE: 07/05/2018 SUBJECTIVE: The patient's case was discussed with staff. She has no new complaint. OBJECTIVE: The patient denies intent to harm herself or others. She is in good behavioral control. She is sleeping a fair amount, but she does not look sedated. Looking at her medication, she has not actually receiving anything that should cause any kind of sedation. She will be maintained on her current dose of Aricept and I anticipate that once she is evaluated by [facility] she can be transitioned to back there. TRANSINT:[id number] Voice Confirmation ID: [id number] DOCUMENT ID: [id number] AMIRA WARE MD at 1419 CC: [id number] DICTATION DATE: 07/05/18 1439 ART INSTRUCTOR: 07/05/18 1631 ADM IN [facility] [address] [id number]
--- NOTE | 2018-07-06 19:03 | NUR ---
PLEASANTLY CONFUSED, NO BEHAVIORAL ISSUES NOTED THIS SHIFT.
[2018-07-06 20:36] VITALS: BP 120/56
--- NOTE | 2018-07-07 03:47 | NUR ---
B) Patient is alert and oriented to person and place, calm and cooperative, social with peers, I) Administered scheduled medications as ordeered, monitored for safety and for needs, R) Mediation compliant, follows unit milieu P) Continue plan of care.
--- NOTE | 2018-07-07 05:15 | PN ---
PATIENT:MARIYA MAGANA MEDICAL RECORD: [id number] LOCATION:[facility] ADMISSION DATE: 06/27/18 PROGRESS NOTE DATE OF SERVICE: 07/06/2018 SUBJECTIVE: The patient's case was discussed with staff. She has no new complaint. OBJECTIVE: The patient is in good behavioral control with poor insight about her condition. She tolerates her medicines well. She is eating and sleeping well. She certainly is quite confused, but she has had no aggressive or delusional behaviors. I anticipate that she can be transitioned back to [place] soon. I know they are going to move her to a more restrictive unit and I think that is a good move. TRANSINT:[id number] Voice Confirmation ID: [id number] DOCUMENT ID: [id number] AMIRA WARE MD at 0515 CC: [id number] DICTATION DATE: 07/06/181657 AIR TRAFFIC CONTROL OPERATOR: 07/06/181940 ADM IN [facility] [address] [place] [address]
--- NOTE | 2018-07-07 07:58 | NUR ---
B) The patient is awake and alert. She is pleasant, but then she makes a negative statement. She has poor insight into her situation. She ambulates independently. I) Provide prescribed meds. R) The patient is socializing with the other patients and she takes her meds easily. P) Continue POC.
[2018-07-07 09:02] VITALS: BP 133/51
[2018-07-07 19:24] VITALS: BP 123/63
--- NOTE | 2018-07-08 00:35 | NUR ---
PATIENT COULD NOT REMEMBER WHERE HER ROOM WAS TONIGHT, COMPLIANT WITH MEDS, NO ADVERSE REACTION NOTED. WILL FOLLOW POC
[2018-07-08 09:11] VITALS: BP 116/72
--- NOTE | 2018-07-08 11:13 | NUR ---
B) The patient is calm this am, she ambulates independently. She has poor insight into her situation. She is pleasant. I) Provide prescribed meds. R) The patient is compliant with meds and unit milieu. P) Continue POC.
--- NOTE | 2018-07-08 18:45 | PN ---
PATIENT:MARIYA MAGANA MEDICAL RECORD: [id number] LOCATION:[facility] ADMISSION DATE: 06/27/18 PROGRESS NOTE DATE OF SERVICE: 07/07/2018 SUBJECTIVE: The patient's case was discussed with staff. She has no new complaint. OBJECTIVE: The patient has been in good behavioral control. She has not been disruptive in any significant way. She is tolerating her medicines well. She clearly needs a more restrictive environment than she has been living and I think those arrangements have almost been completed. ASSESSMENT: Senile dementia of the Alzheimer's type with behavioral disturbances. PLAN: Current medicines and therapies have been reviewed and will be maintained. Long-term prognosis is guarded. TRANSINT:[id number] Voice Confirmation ID: [id number] DOCUMENT ID: [id number] AMIRA WARE MD at 1845 CC: [id number] DICTATION DATE: 07/07/18 0536 PROCESSOR HELPER: 07/07/18 0856 ADM IN [facility] [address] [place] [address]
[2018-07-08 19:27] VITALS: BP 146/55
--- NOTE | 2018-07-08 20:35 | NUR ---
PATIENT IS CONFUSED AND TRIES TO "PLAY IT OFF", NEEDS SOME DIRECTION, COMPLIANT WITH MEDS, NO ADVERSE REACTION NOTED. WILL FOLLOW POC
[2018-07-09 08:13] VITALS: BP 141/60
--- NOTE | 2018-07-09 09:52 | PN ---
PATIENT:MARIYA MAGANA MEDICAL RECORD: [id number] LOCATION:[facility] ADMISSION DATE: 06/27/18 PROGRESS NOTE DATE OF SERVICE: 07/08/2018 SUBJECTIVE: The patient's case was discussed with staff. She has no new complaint. OBJECTIVE: The patient denies intent to harm herself or others. She is tolerating her medicines well. She is eating very well and sleeping well also. I anticipate she can be transitioned out of the hospital soon. ASSESSMENT: Senile dementia of the Alzheimer's type with behavioral disturbances. PLAN: Supportive and educational interventions were made. Long-term prognosis is guarded. TRANSINT:[id number] Voice Confirmation ID: [id number] DOCUMENT ID: [id number] AMIRA WARE MD at 0952 CC: [id number] DICTATION DATE: 07/08/181902 AIR CONDITIONING MECHANIC INDUSTRIAL: 07/09/18 0450 ADM IN [facility] [address] [id number]
--- NOTE | 2018-07-09 10:50 | NUR ---
B) The patient is awake and alert, she has poor insight into her situation. I) Provide prescribed meds. The patient ambulates independently. R) The patient is compliant with meds. She does have multiple negative things to say. She said at med pass. "I only take one pill in the am and one pill in the pm, and who ordered me all these pills?" Explained to her she has a medical Dr. and a Psychiatrist. She said "I don not know them and I have never met them." Explained to her that they come in everyday. The patient did comply. P) Continue POC.
--- NOTE | 2018-07-09 20:45 | NUR ---
PATIENT IS CONFUSED, INTERACTS WITH PARTICULAR OTHER RESIDENTS ONLY, CAN MAKE NEEDS KNOW, COMPLIANT WITH MEDS, NO ADVERSE REACTION NOTED. WILL FOLLOW POC
[2018-07-09 21:29] VITALS: BP 148/73
[2018-07-10 07:00] VITALS: BP 157/72
--- NOTE | 2018-07-10 11:26 | NUR ---
PATIENT IS AWAKE AND ALERT, WITH POOR INSIGHT INTO SITUATION. CALM AND COOPERaTIVE WITH CARE AND ASSESSMENT. MEDICATION COMPLIANT. REDIRECT AND REORIENT NEEDED. WILL CONTINUE POC.
--- NOTE | 2018-07-10 15:33 | PN ---
PATIENT:MARIYA MAGANA MEDICAL RECORD: [id number] LOCATION:[facility] ADMISSION DATE: 06/27/18 PROGRESS NOTE DATE OF SERVICE: 07/09/2018 SUBJECTIVE: The patient's case was discussed with staff. She has no new complaint. OBJECTIVE: The patient denies intent to harm herself or others. She is tolerating her medicines well. ASSESSMENT: Senile dementia of the Alzheimer's type with behavioral disturbances. PLAN: Brief supportive and educational interventions were made. Long-term prognosis is guarded. TRANSINT:[id number] Voice Confirmation ID: [id number] DOCUMENT ID: [id number] AMIRA WARE MD at 1533 CC: [id number] DICTATION DATE: 07/09/18 1030 GEOSPATIAL INTELLIGENCE ANALYST: 07/09/18 1731 ADM IN [facility] [address] [place] [address]
[2018-07-10] MEDS ORDERED: DIOVAN80 MG PO (16:30)
[2018-07-10] MEDS ORDERED: DONEPEZIL HCL5 MG PO (16:30)
[2018-07-10] MEDS ORDERED: FLORAJEN3 CAPS460 MG PO (16:31)
[2018-07-10] MEDS ORDERED: LEXAPRO10 MG PO (16:31)
[2018-07-10] MEDS ORDERED: MEGACE ES625 MG/5 M PO (16:31)
[2018-07-10 20:12] VITALS: BP 135/63
--- NOTE | 2018-07-11 04:19 | NUR ---
RECEIVED IN DAYROOM. SOCIALIZING WITH PEERS. CALM AND COOPERATIVE WITH CARE AND ASSESSMENT. CONFUSED. THINKS SHE IS AT A HOTEL AND CHECKED IN YESTERDAY. REDIRECT AND REORIENT NEEDED. RESTING IN BED WITH EYES CLOSED AT THIS TIME. CONTINUE PLAN OF CARE.
[2018-07-11 08:24] VITALS: BP 158/69
--- NOTE | 2018-07-11 09:12 | NUR ---
RECEIVED PATIENT IN DINING ROOM FOR B'FAST, ALERT, CALM, COOPERATIVE, CONFUSED. MEDS ADMIN PER ORDERS WITH COMPLETE MED COMPLIANCE NOTED. COOPERATIVE WITH GROUP AND STAFF REQUESTS. PATIENT TO DISCHARGE LATER THIS SHIFT.
--- NOTE | 2018-07-11 10:30 | NUR ---
REPORT CALLED TO LEON AT [facility]. ALL PAPERWORK FAX AND COPY WILL BE SENT WITH PT.
--- NOTE | 2018-07-11 11:10 | NUR ---
Personal belongings returned to patient. Patient discharged in c/o usp staff. Patient alert, calm, pleasant mood, denies pain, no s/s distress.
--- NOTE | 2018-07-11 13:08 | PN ---
PATIENT:MARIYA MAGANA MEDICAL RECORD: [id number] LOCATION:[facility] ADMISSION DATE: 06/27/18 PROGRESS NOTE DATE OF SERVICE: 07/10/2018 SUBJECTIVE: The patient's case was discussed with staff. She has no new complaint. OBJECTIVE: The patient is in good behavioral control with limited insight about her condition. She does tolerate her medicines well. ASSESSMENT: Senile dementia of the Alzheimer's type with behavioral disturbances. PLAN: The patient is going to be transitioned out of the hospital tomorrow. Her long-term prognosis is guarded. Followup will be with her primary care physician. TRANSINT:[id number] Voice Confirmation ID: [id number] DOCUMENT ID: [id number] AMIRA WARE MD at 1308 CC: [id number] DICTATION DATE: 07/10/18 1630 SHADING PAINTER: 07/10/18 1855 DIS IN 07/11/18 [facility] [address] [place] [address]
--- NOTE | 2018-07-13 14:08 | DS ---
PATIENT:MARIYA MAGANA :[birth year] MEDICAL RECORD: [id number] DISCHARGE SUMMARY ADMISSION DATE: 06/27/18 DISCHARGE DATE: 07/11/18 IDENTIFYING DATA: The patient is 87 years old and she was admitted to the hospital on a voluntary basis secondary to confusion and agitation. The patient had been living in a memory care unit of an assisted living center, but they felt they could not manage her. She was wandering, confused and very agitated. They sent her to us for evaluation of these disruptive behaviors. HOSPITAL COURSE: The patient was admitted to the hospital and fully evaluated from both a medical, psychological, and social standpoint. She was treated with mood-stabilizing, memory-enhancing medication. She did show improvement and was subsequently transitioned to a usp. DISCHARGE DIAGNOSES: AXIS I: Senile dementia of the Alzheimer's type with behavioral disturbances. AXIS II: None. AXIS III: Hypertension, chronic obstructive pulmonary disease. AXIS IV: Moderate. AXIS V: Global Assessment Of Functioning is 35. At the time of discharge, the patient was in good behavioral control and had no thoughts of harming herself or others. She was tolerating her medications well. Her long-term prognosis is guarded. TRANSINT:[id number] Voice Confirmation ID: [id number] DOCUMENT ID: [id number] AMIRA WARE MD at 1408 CC: [id number] DICTATION DATE: 07/12/18 1607 PATIENT SERVICES SPECIALIST: 07/13/18 0013 DIS IN 07/11/18 [id number] [place] [address]
== END 2018-07-11 11:00 | disposition home or self-care (01) | DRG 57 ==
LOC: D.PSYCH 16:45
PROVIDERS: ADMIT Psychiatry & Neurology Psychiatry; ATTEND Psychiatry & Neurology Psychiatry
DX: G30.1 Alzheimer's disease with late onset (principal); F02.81 Dementia in other diseases classified elsewhere, unspecified severity, with behavioral disturbance; N39.0 Urinary tract infection, site not specified; J44.9 Chronic obstructive pulmonary disease, unspecified; I10 Essential (primary) hypertension; F32.9 Major depressive disorder, single episode, unspecified; K21.9 Gastro-esophageal reflux disease without esophagitis; G25.81 Restless legs syndrome; E55.9 Vitamin D deficiency, unspecified; L85.3 Xerosis cutis

== ENCOUNTER 2019-06-22 06:53 | Inpatient (IN) | payer MEDICARE, OTHER ==
[~2019-06-22] VITALS: Ht 165.1 cm; Wt 70.5 kg
[~2019-06-22 06:53] MED LIST changes: +DONEPEZIL HCL5 MG PO; +FLORAJEN3 CAPS460 MG PO; +MEGACE ES625 MG/5 M PO
[2019-06-22 08:04] LABS: BASOPHILS 0.4 % (0-2); EOSINOPHILS 1.9 % (0-7); HEMATOCRIT 29.1 % (36.0-48.0); HEMOGLOBIN 8.2 g/dL (12-16); IMMATURE GRANULOCYTES 0.4 % (0-5); LYMPHOCYTES 22.5 % (15-50); MCH 20.3 pg (26.0-34.0); MCHC 28.2 g/dL (31.0-37.0); MEAN PLATELET VOLUME 10.4 fL (7.4-10.4); MONOCYTES 5.9 % (2-11); NEUTROPHILS 68.9 % (40-80); PLATELET COUNT 290 10x3/uL (130-400); RBC 4.04 10x6/uL (4.00-5.40); RDW 15.3 % (11.5-14.5); WBC 7.5 10x3/uL (4.8-10.8)
[2019-06-22 08:21] LABS: ANION GAP 16.6 mmol/L (8-16); CALCIUM 8.4 mg/dL (8.5-10.1); CARBON DIOXIDE 22.1 mmol/L (21.0-32.0); CREATININE - SERUM 1.3 mg/dL (0.6-1.3); POTASSIUM - SERUM 3.7 mmol/L (3.5-5.1)
[2019-06-22 08:25] LABS: ALBUMIN 3.7 g/dL (3.4-5.0); BILIRUBIN - TOTAL 0.49 mg/dL (0.2-1.3); PROTEIN - SERUM 6.7 g/dL (6.4-8.2)
[2019-06-22 08:30] VITALS: BP 148/64
--- NOTE | 2019-06-22 08:30 | NUR ---
IN/OUT CATH PERFROMED USING PILOT PLANT OPERATOR WITH IMMED RTN CLEAR YELLOW URINE, SPEC COLLECTED, LABELED AT BS AND SENT TO LAB
[2019-06-22 08:32] LABS: % SATURATION 4 % (15-55); IRON 18 ug/dl (35-150); TOTAL IRON BIND CAPACITY 445 ug/dl (260-445); UNSAT IRON BIND CAPACITY 427 ug/dl (150-375)
--- NOTE | 2019-06-22 08:35 | NUR ---
STOOL FOR OCCULT BLOOD COLLECTED RESULTS= POSITIVE, DR ALEJANDRA NOTIFIED. STOOL SOFT LIGHT BROWN IN COLOR
[2019-06-22 09:12] VITALS: BP 143/47
[2019-06-22 09:12] LABS: BILIRUBIN NEGATIVE (NEGATIVE); GLUCOSE NEGATIVE (NEGATIVE); KETONE NEGATIVE (NEGATIVE); NITRITE POSITIVE (NEGATIVE); SPECIFIC GRAVITY 1.025 (1.005-1.020); UROBILINOGEN NORMAL (NORMAL)
[2019-06-22 09:13] LABS: BACTERIA MANY /hpf (NEGATIVE); EPITHELIAL CELLS 0-5 /hpf (0-5); HYALINE CAST OCC /lpf (NONE SEEN); RED CELLS - URINE RARE /hpf (0-5)
--- NOTE | 2019-06-22 09:29 | NUR ---
CALLED PTS LISTED MOBILE UI DEVELOPER: SHONDA IBANEZ. INFORMED OF DX AND POC. VERB UNDER.
--- NOTE | 2019-06-22 09:33 | NUR ---
CALLED RITESH MONK AT [facility] AND EXPL POC
[2019-06-22 09:48] LABS: APTT 26.3 SECONDS (22.8-39.4); INR 1.08 (0.85-1.17); PROTIME 13.9 SECONDS (11.6-15.0)
--- NOTE | 2019-06-22 10:48 | NUR ---
REPORT TO FRANCISCO FULLER AT [facility]
--- NOTE | 2019-06-22 10:51 | NUR ---
[facility] CALLED FOR ALS TRANSPORT ETA 45 MINUTES-1 HR
--- NOTE | 2019-06-22 11:09 | NUR ---
[facility] REPORTS GI COVERAGE (DR HARDY) O/C THIS W/E. DR ALEJANDRA NOTIFIED AND TX CXLD. [facility], [facility] AND [facility] NOTIFIED
[2019-06-22 11:55] LABS: HEMATOCRIT 27.5 % (36.0-48.0); HEMOGLOBIN 7.7 g/dL (12-16)
[2019-06-22 11:58] VITALS: BP 142/60
--- NOTE | 2019-06-22 12:04 | NUR ---
REPORT CALLED TO FRANCISCO JUSTIN
--- NOTE | 2019-06-22 12:06 | NUR ---
SPOKE TO ARMIN IN ER AND OBTAINED REPORT ON PT, PER RN ARMIN ORDERS STATE PT IS TO HAVE 1 UNIT OF BLOOD. SPOKE TO DARYN IN ER AND HE STATED HE SPOKE TO STEFAN ER DIRECTOR AND WAS TOLD THAT BLOOD WAS NOT NEEDED FOR PT AT THIS TIME,WILL CONSULT WITH DR HARDY AND CONFIRM ORDERS UPON ARRIVAL. WILL ASSUME PT CCARE ONCE PT ARRIVES
--- NOTE | 2019-06-22 12:07 | NUR ---
CALLED SHONDA FALCON, DIL AND CONSENT FOR BLOOD OBTAINED AND WITNESSED BY ANOTHER RN (FRANCISCO AVILES)
[2019-06-22 15:16] VITALS: BP 142/60; Ht 165.1 cm; Wt 70.5 kg
[2019-06-22 15:39] VITALS: BP 137/96
[2019-06-22 20:00] VITALS: BP 118/65
--- NOTE | 2019-06-22 20:05 | NUR ---
ATTEMPTED TO START IV ON PATIENT. PATIENT SWATTED AT NURSE SEVERAL TIMES. PATIENT IS CONFUSED. SPOKE WITH CHARGE NURSE ABOUT PATIENT. SHE WILL TRY TO EDUCATE AND ATTEMPT TO START IV ONCE PATIENT CALMS DOWN.
--- NOTE | 2019-06-22 20:25 | NUR ---
UNSUCCESSFUL IN TRYING TO RESTART IV. PATIENT COMBATIVE. PAGED DIFFUSER OPERATOR INSERT OPERATOR. AWAITING RETURN PHONE CALL.
--- NOTE | 2019-06-22 21:03 | NUR ---
PATIENT TOOK PO MEDS AFTER EDUCATION PROVIDED. REFUSED IV AGAIN. PAGED JEWELRY STORE MANAGER AGAIN. AWAITING RETURN CALL.
--- NOTE | 2019-06-22 21:04 | NUR ---
IMMEDIATE RETURN CALL FROM EDD CUELLAR. RECEIVED ORDERS TO CHANGE IV MEDS TO PO. PATIENT WILL TAKE PO MEDS BUT BECOMES VERY COMBATIVE IF SHE IS TOUCHED.
--- NOTE | 2019-06-23 00:33 | NUR ---
RESTING WITH NO SIGNS OR SYMPTOMS OF DISTRESS AT THIS TIME. CPOC.
[2019-06-23 04:00] VITALS: BP 155/85
--- NOTE | 2019-06-23 04:40 | NUR ---
PATIENT CALM THIS MORNING. VERY NICE. ALLOWS NURSING STAFF TO ATETMPT IV STARTS AND LAB TO PERFORM DRAWS. PATIENT STATES SHE IS HUNGRY. FED MYNOR CRACKERS AND WATER. TOLERATED WELL
--- NOTE | 2019-06-23 05:15 | NUR ---
PATIENT ALLOWED 22G TO THE RIGHT FOREARM. PATIENT VERY CALM AND COOPERATIVE THIS MORNING. VERY DIFFERENT DEMEANOR THAN BEGINNING OF ORNAMENTAL BRONZE WORKER.
[2019-06-23 05:52] LABS: BASOPHILS 0.5 % (0-2); EOSINOPHILS 1.4 % (0-7); HEMATOCRIT 25.7 % (36.0-48.0); IMMATURE GRANULOCYTES 0.4 % (0-5); LYMPHOCYTES 28.3 % (15-50); MCH 20.3 pg (26.0-34.0); MCHC 28.4 g/dL (31.0-37.0); MCV 71.6 fL (80.0-100.0); MEAN PLATELET VOLUME 10.3 fL (7.4-10.4); NEUTROPHILS 62.4 % (40-80); PLATELET COUNT 272 10x3/uL (130-400); RBC 3.59 10x6/uL (4.00-5.40); RDW 15.3 % (11.5-14.5); WBC 5.7 10x3/uL (4.8-10.8)
[2019-06-23 05:56] LABS: HEMOGLOBIN 7.3 g/dL (12-16)
[2019-06-23 06:19] LABS: ALBUMIN 3.2 g/dL (3.4-5.0); ANION GAP 13.3 mmol/L (8-16); BILIRUBIN - TOTAL 0.49 mg/dL (0.2-1.3); CALCIUM 8.3 mg/dL (8.5-10.1); CARBON DIOXIDE 22.4 mmol/L (21.0-32.0); CREATININE - SERUM 1.3 mg/dL (0.6-1.3); POTASSIUM - SERUM 3.7 mmol/L (3.5-5.1)
--- NOTE | 2019-06-23 06:20 | NUR ---
PAGED BUSINESS PERFORMANCE MANAGER. RECEIVED IMMEDIATE RETURN PHONE CALL. RELAYED CIRITICAL HGB. REVIEWED VITAL SIGNS. RECEIVED ORDERS.
--- NOTE | 2019-06-23 06:50 | NUR ---
AWAKE WITH CONFUSION NOTED. 1ST UNIT PRBC'S INFUSING AT PRESCRIBED RATE WITH NO S/S OF REACTION/INFILTRATION NOTED WITH IV SECURED WITH TAPE AND KERLEX. SKIN INTACT WITH NO PERIPHERAL EDEMA NOTED, POOR TURGOR AND ENCOURAGED TO DRINK MORE. ABDOMEN SOFT WITH BOWEL SOUNDS NOTED. ENCOURAGED TO USE CALL LIGHT FOR ASSSIT. FALL PRECAUTIONS IN PLACE. LUNGS CTA AND HRRR
[2019-06-23 08:00] VITALS: BP 150/63
--- NOTE | 2019-06-23 09:59 | NUR ---
FINISHED 1ST UNIT PRBC'S WITH NO REACTION NOTED. PATIENT ATTEMPTED TO GET UP UNASSISTED WITH BED ALARM SOUNDING. ASSIST WITH SBA TO BSC AND HAD MODERATE LOOSE BM.
--- NOTE | 2019-06-23 10:15 | NUR ---
STARTED 2MD 'UNIT PRBC'S WITH NO S/S OF REACTION NOTED AT THIS TIME. FALL PRECAUTIONS IN PLACE.
[2019-06-23 12:05] VITALS: BP 128/75
--- NOTE | 2019-06-23 13:02 | NUR ---
FINISHED 2ND UNIT PRBC'S WITH NO S/S OF REACTION NOTED. IV S/L AT THIS TIME.
[2019-06-23 16:00] VITALS: BP 123/68
--- NOTE | 2019-06-23 19:05 | NUR ---
PATIENT RESTING WITH EYES CLOSED. AROUSES TO VERBALI STIMULI. PLEASENTLY CONFUSED AT THIS TIME. IV INTACT IN THE RIGHT FOREARM. INFUSING NS @ 75. UNLABORED RESPIRATIONS. DENIES PAIN. DENIES DISCOMFORT. FALL PRECAUTIONS IN PLACE. CALL LIGHT CLOSE. CPOC.
[2019-06-23 19:43] VITALS: BP 115/60
--- NOTE | 2019-06-23 20:52 | NUR ---
TOLERATED HS MEDICATIONS WITH NO PROBLEMS. DENIES FURTHER NEEDS. FALL PRECAUTIONS REMAIN IN PLACE. CPOC.
--- NOTE | 2019-06-23 23:04 | NUR ---
RESTING WITH NO SIGNS OR SYMPTOMS OF DISTRESS AT THIS TIME. IV REMAINS IN TACT. UNLABORED RESPIRATIONS. CLOSE TO NURSES STATION FOR MONITORING. CPOC.
--- NOTE | 2019-06-24 02:14 | NUR ---
I have reviewed this patient and I concur with the Shift Assessment completed by the Licensed Practical Nurse today this shift.
[2019-06-24 04:00] VITALS: BP 147/68
[2019-06-24 05:41] LABS: BASOPHILS 0.2 % (0-2); EOSINOPHILS 1.1 % (0-7); IMMATURE GRANULOCYTES 0.6 % (0-5); LYMPHOCYTES 23.5 % (15-50); MCH 23.1 pg (26.0-34.0); MCHC 31.1 g/dL (31.0-37.0); MEAN PLATELET VOLUME 10.7 fL (7.4-10.4); MONOCYTES 6.7 % (2-11); NEUTROPHILS 67.9 % (40-80); PLATELET COUNT 256 10x3/uL (130-400); RDW 16.9 % (11.5-14.5)
[2019-06-24 05:42] LABS: HEMATOCRIT 34.1 % (36.0-48.0); HEMOGLOBIN 10.6 g/dL (12-16); MCV 74.3 fL (80.0-100.0); RBC 4.59 10x6/uL (4.00-5.40); WBC 8.2 10x3/uL (4.8-10.8)
[2019-06-24 05:54] LABS: ALBUMIN 3.3 g/dL (3.4-5.0); BILIRUBIN - TOTAL 0.61 mg/dL (0.2-1.3); CALCIUM 7.9 mg/dL (8.5-10.1); CARBON DIOXIDE 20.3 mmol/L (21.0-32.0); CREATININE - SERUM 1.5 mg/dL (0.6-1.3); POTASSIUM - SERUM 3.3 mmol/L (3.5-5.1); PROTEIN - SERUM 6.1 g/dL (6.4-8.2)
--- NOTE | 2019-06-24 08:01 | NUR ---
ASSSISTED UP TO BSC WITH SBA WITH BED ALARM INTACT AND SOUNDING. PATIENT PLEASANTLY CONFUSED TO PLACE, TIME, AND SITUATION. LUNGS CTA AND HRRR. ABDOMEN SOFT WITH BOWEL SOUNDS NOTED. NO PERIPHERAL EDEMA NOTED AND NO FACIAL GRIMACING OR COMPLAINTS OF PAIN.
[2019-06-24 08:03] VITALS: BP 135/70
[2019-06-24 13:03] VITALS: BP 106/46
[2019-06-24] MEDS ORDERED: LEVOFLOXACIN500 MG PO (13:10)
[2019-06-24] MEDS ORDERED: PROTONIX40 MG PO (13:17)
[2019-06-24] MEDS ORDERED: CARAFATE1 G PO (13:17)
--- NOTE | 2019-06-24 14:00 | NUR ---
IV DISCONTINUED WITH REPORT CALLED TO CHANO RAMIREZ LPN. DISCHARGE PAPERS SENT WITH TRANSPORTATION TO [facility]. PATIENT STABLE AT TIME OF DISCHARGE.
--- NOTE | 2019-06-24 17:56 | MORECARE ---
CASE MANAGEMENT DISCHARGE SUMMARY PATIENT: MARIYA MAGANA UNIT: [id number] ADM DATE: 06/22/19 AGE: 88 : [birth year] SEX: F ROOM/BED: D.2219 AUTHOR: SURI INIGUEZ PHYSICIAN: REFERRING PHYSICIAN: CRISTINA MOSHER MD DATE OF SERVICE: 06/24/19 Discharge Plan Patient Name: MAR[facility]YA MAGANA [facility] [facility] 1930 Planned Disposition: Assisted Living Anticipated Discharge Date: Discharge Date: 06/24/2019 Expected LOS: Initial Reviewer: [email or web address] Initial Review Date: 06/22/2019 Generated: 06/24/19 6:55 pm Patient Name: MARIYA MAGANA Page [id number] at 1756 All edits/amendments must be made on the electronic document DICTATION DATE: 06/24/191754 BUTTON PUNCHER: SHERMAN 06/24/191754 RPT#: [id number] DC DATE:06/24/19 STATUS: DIS IN [facility] [address] [place] [address] END OF REPORT
--- NOTE | 2019-06-24 18:02 | MORECARE ---
CASE MANAGEMENT DISCHARGE SUMMARY PATIENT: MARIYA MAGANA UNIT: [id number] ADM DATE: 06/22/19 AGE: 88 : [birth year] SEX: F ROOM/BED: D.2219 AUTHOR: SURI INIGUEZ PHYSICIAN: REFERRING PHYSICIAN: CRISTINA MOSHER MD DATE OF SERVICE: 06/24/19 Discharge Plan Patient Name: [facility]YA MAGANA [facility] [facility] 1930 Planned Disposition: Assisted Living Anticipated Discharge Date: Discharge Date: 06/24/2019 Expected LOS: Initial Reviewer: [email or web address] Initial Review Date: 06/22/2019 Generated: 06/24/19 7:01 pm DCPIA - Discharge Planning Initial Assessment Updated by [email or web address]: Sade Perez on 06/24/19 5:57 pm * How many steps to enter\exit or inside your home? * PCP NO PCP * Pharmacy [facility] * Preadmission Environment Assisted Living * Facility Name [facility] * ADLs Partial Dependent * Partial ADLs (Assistance needed) Ambulation Bathing Dressing Eating Medication Management Toileting Transfers * List name and contact numbers for known caregivers / representatives who currently or will assist patient after discharge: NATALIE FALCON - ROMEL - [phone] * Verbal permission to speak to the caregivers and representatives has been obtained from the patient. Yes * Additional services required to return to the preadmission environment? No * Can the patient safely return to the preadmission environment? Yes * Has this patient been hospitalized within the prior 30 days at any hospital? No Last DP export: 06/24/19 4:55 pm Patient Name: MARIYA MAGANA Page [phone] at 1802 All edits/amendments must be made on the electronic document DICTATION DATE: 06/24/191800 HIDE AND SKIN CLASSER: SHERMAN 06/24/191800 RPT#: [id number] DC DATE:06/24/19 STATUS: DIS IN [facility] [address] [place] [address] END OF REPORT
== END 2019-06-24 14:00 | disposition home or self-care (01) | DRG 811 ==
LOC: D.ER 06:53 → D.MS 11:15
PROVIDERS: Emergency Medicine; Family Medicine; ADMIT Family Medicine; ATTEND Family Medicine
DX: D50.9 Iron deficiency anemia, unspecified (principal); K29.71 Gastritis, unspecified, with bleeding; G93.41 Metabolic encephalopathy; N39.0 Urinary tract infection, site not specified; G30.9 Alzheimer's disease, unspecified; F02.80 Dementia in other diseases classified elsewhere, unspecified severity, without behavioral disturbance, psychotic disturbance, mood disturbance, and anxiety; I10 Essential (primary) hypertension; I25.10 Atherosclerotic heart disease of native coronary artery without angina pectoris; J44.9 Chronic obstructive pulmonary disease, unspecified; G25.81 Restless legs syndrome; E55.9 Vitamin D deficiency, unspecified; K57.90 Diverticulosis of intestine, part unspecified, without perforation or abscess without bleeding

== ENCOUNTER 2019-07-02 16:59 | Emergency (ER) | payer MEDICARE, OTHER ==
[~2019-07-02] VITALS: Ht 165.1 cm; Wt 63.6 kg
[~2019-07-02 16:59] MED LIST changes: +CARAFATE1 G PO; +LEVOFLOXACIN500 MG PO; +PROTONIX40 MG PO
[2019-07-02 17:04] VITALS: BP 133/49; Ht 165.1 cm; Wt 63.6 kg
== END 2019-07-02 19:10 | disposition home or self-care (01) ==
LOC: D.ER 16:59
DX: R51 Headache (principal); M54.2 Cervicalgia; W19.XXXA Unspecified fall, initial encounter; Y93.9 Activity, unspecified; Y92.129 Unspecified place in nursing home as the place of occurrence of the external cause; F03.90 Unspecified dementia, unspecified severity, without behavioral disturbance, psychotic disturbance, mood disturbance, and anxiety; I10 Essential (primary) hypertension; J44.9 Chronic obstructive pulmonary disease, unspecified